=== PATIENT | female | born 1950 | race Hispanic/Latino ===

== ENCOUNTER 2017-05-21 07:46 | Observation (INO) | payer BC ==
[2017-05-21 08:06] VITALS: BMI 34.4
--- NOTE | 2017-05-21 08:36 | ED PDOC ---
Arrival/HPI - General Chief Complaint: Flu-like Symptoms Time Seen by Provider: 05/21/17 08:24 - History of Present Illness Narrative History of Present Illness (Text): 67 y/o F c PMHx HTN p/w NBNB vomiting x 4 days ago after eating mall food, resolved the next day, now p/w general weakness and lightheadedness x 2 days. Also reports malodorous urine. Denies dysuria, fever, dyspnea, LOC, chest pain. Past Medical History - Reproductive Menopause: Yes - Cardiac Hx Cardiac Disorders: Yes Hx Hypertension: Yes - Pulmonary Hx Respiratory Disorders: Yes Hx Chronic Obstructive Pulmonary Disease (COPD): Yes - Neurological Hx Neurological Disorder: Yes Hx Migraine: Yes - HEENT Hx HEENT Disorder: Yes Other/Comment: SINUSITIS - Renal Hx Renal Disorder: No - Endocrine/Metabolic Hx Endocrine Disorders: No - Hematological/Oncological Hx Blood Disorders: Yes Hx Blood Transfusions: Yes - Integumentary Hx Dermatological Disorder: Yes Hx Psoriasis: Yes - Musculoskeletal/Rheumatological Hx Musculoskeletal Disorders: Yes Hx Degenerative Joint Disease: Yes Other/Comment: SCOLIOSIS - Gastrointestinal Hx Gastrointestinal Disorders: Yes Hx Constipation: Yes - Genitourinary/Gynecological Hx Genitourinary Disorders: No - Psychiatric Hx Psychophysiologic Disorder: Yes Hx Anxiety: Yes Hx Depression: Yes Hx Substance Use: No - Surgical History Hx Section: Yes Other/Comment: R/T SCOLIOSIS - Anesthesia Hx Anesthesia: Yes - Suicidal Assessment Feels Threatened In Home Enviroment: No Family/Social History Family/Social History: No Known Family HX Smoking Status: Never Smoked Hx Alcohol Use: No Hx Substance Use: No Allergies/Home Meds Allergies/Adverse Reactions: Allergies cat dander Allergy (Verified 05/21/17 08:24) ITCHING mold Allergy (Verified 05/21/17 08:24) COUGH Sulfa (Sulfonamide Antibiotics) Allergy (Verified 02/26/16 14:46) RASH tetracycline Allergy (Verified 02/26/16 14:46) URTICARIA ASPERTAME Allergy (Uncoded 02/26/16 14:46) DIARRHEA Home Medications: Home Meds Medication Instructions Recorded Confirmed ARIPiprazole [Abilify] 5 mg PO DAILY 10/27/14 05/21/17 Clonazepam [Klonopin] 0.5 mg PO DAILY 10/27/14 05/21/17 Lamotrigine [Lamictal] 25 mg PO DAILY 10/27/14 05/21/17 Verapamil [Calan SR Tab] 180 mg PO DAILY 10/27/14 05/21/17 Acetaminophen with Codeine 1 tab PO BID PRN 02/26/16 05/21/17 [Tylenol with Codeine #3 Tablet] Amantadine [Amantadine 100 mg Cap] 100 mg PO BID 02/26/16 05/21/17 Carbidopa/Levodopa 1 tab PO TID 02/26/16 05/21/17 [Carbidopa-Levodopa 25-100 Tab] Rizatriptan Benzoate [Maxalt] 10 mg PO PRN PRN 02/26/16 05/21/17 Review of Systems - Physician Review All systems were reviewed & negative as marked: Yes - Review of Systems Constitutional: absent: Fevers Cardiovascular: absent: Chest Pain Physical Exam - Physical Exam Narrative Physical Exam (Text): Gen: NAD Head: NC/AT Eyes: PERRL ENT: Dry MM Neck: Supple CV: Regular rate Lungs: CTA b/l Abd: Soft, NT Extremities: No swelling or tenderness Skin: No rash Neuro: Alert, no focal deficit Vital Signs Temp Pulse Resp BP Pulse Ox 05/21/17 10:15 87 18 144/82 97 05/21/17 08:13 98.5 F 108 H 12 144/73 99 Medical Decision Making ED Course and Treatment: Labs, hydrate, UA and culture. 05/21/17 10:44 EKG: Normal sinus rhythm Rate of [address]/T wave changes CXR no acute disease. Dr. Mccarthy accepts patient to his service on observation as patient with increased unsteadiness/tremor and with poor stability. He called Dr. Diego who will see patient in hospital. - Lab Interpretations Lab Results: 05/21/17 09:07 05/21/17 09:07 Lab Results 05/21/17 09:40: Urine Color Yellow, Urine Appearance Clear, Urine pH 6.0, Ur Specific [place] 1.025, Urine Protein Trace H, Urine Glucose (UA) Negative, Urine Ketones Trace H, Urine Blood Negative, Urine Nitrate Negative, Urine Bilirubin Negative, Urine Urobilinogen 0.2, Ur Leukocyte Esterase Trace H, Urine RBC Negative, Urine WBC 10 - 15, Ur Epithelial Cells 3 - 4 05/21/17 09:07: Sodium 138, Potassium 3.6, Chloride 99, Carbon Dioxide 29, Anion Gap 13, BUN 17, Creatinine 0.8, Est GFR ( Amer) > 60, Est GFR (Non- Af Amer) > 60, Random Glucose 99, Calcium 9.9, Total Bilirubin 1.0, AST 29, ALT 26, Alkaline Phosphatase 93, Total Creatine Kinase 251 H, CK-MB (CK-2) 5.0 H, CK -MB (CK-2) % 2.0 L, Troponin I < 0.01, Total Protein 7.2, Albumin 4.4, Globulin 2.8, Albumin/Globulin Ratio 1.6, Lipase 186 05/21/17 09:07: WBC 5.9, RBC 4.52, Hgb 13.5, Hct 39.7, MCV 87.8, MCH 29.9, MCHC 34.0, RDW 13.9, Plt Count 184, MPV 11.2 H, Gran % 59.3, Lymph % (Auto) 29.1, [place] % (Auto) 10.1 H, Eos % (Auto) 1.0 L, Baso % (Auto) 0.5, Gran # 3.51, Lymph # 1.7, [place] # 0.6, Eos # 0.1, Baso # 0.03 - RAD Interpretation Radiology Orders: 05/21/17 08:38 CHEST PORTABLE [RAD] Stat - Medication Orders Current Medication Orders: Discontinued Medications Sodium Chloride (Sodium Chloride 0.9%) 1,000 mls @ 999 mls/hr IV .Q1H1M STA Stop: 05/21/17 09:59 Last Admin: 05/21/17 09:12 Dose: 999 mls/hr eMAR Start Stop Document 05/21/17 09:12 GERARDO (Rec: 05/21/17 09:17 GERARDO [id number]) Intravenous Solution Start Date 05/21/17 Start Time 09:12 Disposition/Present on Arrival - Present on Arrival Any Indicators Present on Arrival: No History of DVT/PE: No History of Uncontrolled Diabetes: No Urinary Catheter: No History of Decub. Ulcer: No History Surgical Site Infection Following: None - Disposition Have Diagnosis and Disposition been Completed?: Yes Diagnosis: Malaise, General weakness Disposition: HOME/ ROUTINE Disposition Time: 10:12 Patient Plan: Observation Condition: STABLE
[2017-05-21] MEDS ORDERED: Sodium Chloride 0.9% 1,000 ML IV STA (08:59)
[2017-05-21 09:16] LABS: BASO # 0.03 K/mm3 (0.0-2.0); BASO % 0.5 % (0.0-3.0); EOS # 0.1 (0.0-0.7); GRAN # 3.51 (1.4-6.5); GRAN % 59.3 % (50.0-68.0); HEMOGLOBIN 13.5 g/dL (12.0-16.0); LYMPH # 1.7 (1.2-3.4); LYMPH % 29.1 % (22.0-35.0); MEAN CELL VOLUME 87.8 fl (80.0-105.0); MEAN CORPUSCULAR HEMOGLOBIN 29.9 pg (25.0-35.0); MEAN PLATELET VOLUME 11.2 fl (7.0-11.0); MONO # 0.6 (0.1-0.6); MONO % 10.1 % (1.0-6.0); RBC 4.52 10^6/uL (3.5-6.1); RED CELL DISTRIBUTION WIDTH 13.9 % (11.5-14.5); WHITE BLOOD COUNT 5.9 10^3/ul (4.5-11.0)
[2017-05-21 09:25] LABS: ALB/GLOB RATIO 1.6 (1.1-1.8); ALBUMIN 4.4 g/dL (3.0-4.8); ALT/SGPT 26 U/L (7-56); AST/SGOT 29 U/L (14-36); BLOOD UREA NITROGEN 17 mg/dL (7-21); CALCIUM 9.9 mg/dL (8.4-10.5); GFR AFRICAN-AMERICAN > 60; GFR NON-AFRICAN AMERICAN > 60; LIPASE 186 U/L (23-300)
[2017-05-21 09:36] LABS: TROPONIN I < 0.01 ng/mL
[2017-05-21 09:56] LABS: URINE BILIRUBIN NEGATIVE (NEGATIVE); URINE BLOOD NEGATIVE (NEGATIVE); URINE GLUCOSE (UA) NEGATIVE (NEGATIVE); URINE LEUKOCYTE ESTERASE TRACE Leu/uL (NEGATIVE); URINE NITRATE NEGATIVE (NEGATIVE); URINE PROTEIN TRACE mg/dL (<30 mg/dL); URINE UROBILINOGEN 0.2 E.U./dL (<1 E.U./dL)
[2017-05-21 09:57] LABS: URINE APPEARANCE CLEAR (CLEAR); URINE COLOR YELLOW (YELLOW)
[2017-05-21 10:08] LABS: URINE RBC NEGATIVE /hpf (0-2)
[2017-05-21 10:16] VITALS: O2SAT 97
--- NOTE | 2017-05-21 10:19 | RAD ---
HISTORY: Generalize weakness COMPARISON: Comparison made with chest radiograph dated 02/26/2016 FINDINGS: LUNGS: Suspect mild atelectasis left lung base. Right lung is relatively clear so far as can be seen PLEURA: No significant pleural effusion identified, no pneumothorax apparent. CARDIOVASCULAR: Heart size difficult to assess due to severe scoliosis convex right though appears slightly enlarged OSSEOUS STRUCTURES: Re- demonstrated is significant scoliosis upper thoracic spine convex right VISUALIZED UPPER ABDOMEN: Normal. OTHER FINDINGS: None. IMPRESSION: Suspect mild left basilar atelectasis base. . Re- demonstrated is significant scoliosis convex right
[2017-05-21] MEDS ORDERED: Pneumococcal 23-Valent Vaccine IM ONE (14:33)
[2017-05-21] MEDS ORDERED: Influenza Vaccine 60 mcg/0.5 mL SYR (4YR UP) IM ONE (14:33)
--- NOTE | 2017-05-21 15:03 | CT ---
PROCEDURE: CT HEAD WITHOUT CONTRAST. HISTORY: Dizziness COMPARISON: None available. TECHNIQUE: Axial computed tomography images were obtained through the head/brain without intravenous contrast. Radiation dose: Total exam DLP = 936.75 mGy-cm. This CT exam was performed using one or more of the following dose reduction techniques: Automated exposure control, adjustment of the mA and/or kV according to patient size, and/or use of iterative reconstruction technique. FINDINGS: HEMORRHAGE: No acute parenchymal, subarachnoid or extra-axial hemorrhage. BRAIN: Mild diffuse/confluent chronic white matter ischemic changes. . There is a small approximately 4.1 mm the round/elliptical shaped calcification in the left benito radiata nonspecific; rule out post infectious/ inflammatory or post ischemic sequela. There are a few scattered chronic bilateral basal nuclei lacunar type infarcts. Questionable small chronic infarct left cerebellum. Vague low-attenuation changes seen in the left liborio which could represent some volume averaging artifact the possibility of a age-indeterminate ischemic focus not excluded. Mild to moderate generalized volume loss. VENTRICLES: No obstructive hydrocephalus. CALVARIUM: No acute calvarial fractures. PARANASAL SINUSES: Unremarkable as visualized. No significant inflammatory changes. MASTOID AIR CELLS: Unremarkable as visualized. No inflammatory changes. OTHER FINDINGS: None. IMPRESSION: No acute intracranial hemorrhage. Mild diffuse/confluent chronic white matter ischemic changes. . There are a few scattered chronic bilateral basal nuclei lacunar type infarcts. Questionable small chronic infarct left cerebellum. INC hemorrhage that not evaluated no see any hemorrhage There is a small approximately 4.1 mm the round/elliptical shaped calcification in the left benito radiata nonspecific; rule out post infectious/ inflammatory or post ischemic sequela. Vague low-attenuation changes seen in the left liborio which could represent some volume averaging artifact the possibility of a age-indeterminate ischemic focus not excluded. Mild to moderate generalized volume loss.
--- NOTE | 2017-05-21 15:50 | CARD ---
APPROVED REPORT EKG Measurement Heart [id number] <Conclusion> Normal sinus rhythm Normal ECG
[2017-05-21] MEDS ORDERED: Verapamil 180 mg ER Tab PO SCH (22:00)
--- NOTE | 2017-05-22 05:48 | HP ---
HISTORY OF PRESENT ILLNESS: This is a 67-year-old female, who states that several days ago she ate at a mall some mashed potato with mixed vegetable and other things in it and subsequently became ill with nausea and vomiting. She subsequently states that over the following day, it seems to get better. However this morning, she states that during the night she was having some chills also while taking a shower, she felt dizzy and she was referred to [facility]. PAST MEDICAL HISTORY: The patient has a past medical history of hypertension, scoliosis, anxiety, depression, and migraine headaches. SOCIAL HISTORY: She is a non-smoker, non-drinker, and non-drug user. ALLERGIES: , MOLD, PHENYLALANINE, SULFA, TETRACYCLINE, AND ASPARTAME. HOME MEDICATIONS: Consist of Abilify 5 mg daily, Tylenol No. 3 1 tab p.r.n. b.i.d., amantadine 100 mg b.i.d., carbidopa/levodopa 25/100 one tab t.i.d., Klonopin 1.5 mg daily, Lamictal 25 mg daily, Maxalt 10 mg p.o. p.r.n. and verapamil SR 100 mg daily. She also has been taking Diovan and hydrochlorothiazide as an outpatient. PHYSICAL EXAMINATION: VITAL SIGNS: Showed a temperature of 98.5, her pulse was 87, blood pressure 144/82, respiratory rate 12, and oxygen saturation was 99% on room air. NECK: Supple. LUNGS: Clear. HEART: S1 and S2 rhythm. ABDOMEN: Soft, scaphoid. Positive bowel sounds. EXTREMITIES: Show no evidence of edema. The patient had a chest x-ray, which showed mild atelectasis of left lung base, difficult to assess the heart size because of severe scoliosis. A CAT scan of the head was read as showing no acute parenchymal subarachnoid or extra axial hemorrhage. There is mild diffuse confluent chronic white matter ischemic change, small 4.1 mm round elliptical shape calcification in left benito radiata, which is nonspecific, few scattered chronic bilateral basal nuclei lacunar infarcts, questionable small chronic infarct at left cerebellum, vague low attenuation changes in left liborio, [id number] generalized volume loss, now hydrocephalus, no calvarial fracture. LABORATORY DATA: Showed a WBC 5.9, RBC 4.52, hemoglobin 13.5, hematocrit 39.7, and platelet count 184. Chemistry shows normal electrolytes, BUN is 17, and creatinine is 0.8. Liver profile is normal. Total CK is 251. Troponin is less than 0.01. Urinalysis shows trace protein, negative for RBCs and 10 to 15 WBCs. The electrocardiogram was reported as showing a sinus rhythm. IMPRESSION AND PLAN: 1. This is a 67-year-old female with history of gastrointestinal upset, possible gastroenteritis. 2. Symptoms of lightheadedness and dizziness, tingling in the hands and feet. We will get a Neurology and Gastrointestinal evaluation for this patient and urine culture as well. The patient will be requested to be placed on telemetry for monitoring and physical therapy screening. Tiffanie Mccarthy MD
[2017-05-22 08:33] VITALS: BP 146/92; RESP 20; TEMP 98.3
[2017-05-22] MEDS ORDERED: Barium Sulfate Susp 2.1% w/v, 2.0% w/w 450 mL Bottle PO ONE (11:03)
--- NOTE | 2017-05-22 12:39 | CP.PCM.CON ---
History of Present Illness - History of Present Illness History of Present Illness: General Surgery Consult Note for Dr. Gipson Reason for consultation: Right index finger swelling HPI: This is a very pleasant 67 year old female with a past medical history of scoliosis, hypertension, depression, and migraines presented to [facility] for chills and lethargy after experienced a food-borne illness several days ago. We, the surgical team, were consulted for right index finger swelling. The patient reports hurting her finger 2 weeks ago from opening a pet food can. She denies any blood expressed from the cut and denies any ascending weakness, paralysis, numbness, or tingling in the right upper extremity. She does not recall the last time she got a tetanus shot. After examining the area, it appears the patient medial periungal area is mildly swollen, likely secondary to frequent hand hygiene/nail hygiene. The patient had the finger tightly wrapped in a band- aid, "to protect it from germs". I informed her that was unnecessary and her chills and generalized weakness are not stemming from an infection in her right index finger, and rather from another source, if any. I recommended repeating the UA and applying warm compresses to the right index finger. PMD: Dr. Mccarthy PMH: hypertension, scoliosis, depression, migraines, Surgical history: X 2, 2 Back surgeries, Small Cyst Removed By Left Eye. Bunionectomy Bilaterally. Allergies: Aspartame, mold, cat dander, phenylalanine, sulfa, and tetracyclines Social: Denies smoking, alcohol, or illicit drug use Review of Systems - Review of Systems All systems: reviewed and no additional remarkable complaints except Review of Systems: as per hpi Past Patient History - Past Social History Smoking Status: Former Smoker - CARDIAC Hx Cardiac Disorders: Yes Hx Hypertension: Yes - PULMONARY Hx Respiratory Disorders: Yes Hx Chronic Obstructive Pulmonary Disease (COPD): Yes - NEUROLOGICAL Hx Neurological Disorder: Yes (TREMORS) Hx Dizziness: Yes Hx Migraine: Yes - HEENT Hx HEENT Problems: Yes Other/Comment: SINUSITIS - RENAL Hx Chronic Kidney Disease: No - ENDOCRINE/METABOLIC Hx Endocrine Disorders: No - HEMATOLOGICAL/ONCOLOGICAL Hx Blood Disorders: Yes - INTEGUMENTARY Hx Dermatological Problems: Yes Hx Psoriasis: Yes - MUSCULOSKELETAL/RHEUMATOLOGICAL Hx Musculoskeletal Disorders: Yes (SLIPPED DISC,SCOLIOSIS) Hx Degenerative Joint Disease: Yes Hx Falls: Yes Hx Unsteady Gait: Yes Other/Comment: SCOLIOSIS - GASTROINTESTINAL Hx Gastrointestinal Disorders: Yes - GENITOURINARY/GYNECOLOGICAL Hx Genitourinary Disorders: No (C/S X2) - PSYCHIATRIC Hx Psychophysiologic Disorder: Yes Hx Anxiety: Yes Hx Depression: Yes Hx Substance Use: No - SURGICAL HISTORY Hx Surgeries: Yes (C/S X 2,2 BACK SX, SMALL CYST REMOVED BY HER LEFT EYE.BUNIONECTOMY LINDEN FOOT) Other/Comment: R/T SCOLIOSIS - ANESTHESIA Hx Anesthesia: Yes Meds Home Medications: Home Medication List Medication Instructions Recorded Confirmed Type Cephalexin [Keflex] 500 mg PO Q8H 5 Days #15 cap 05/22/17 Rx Lactobac/Bifidobac/Glob Pr Con 1 each PO DAILY 5 Days #5 capsule 05/22/17 Rx [Ultra Zeinab Plus Capsule] Allergies/Adverse Reactions: Allergies Allergy/AdvReac Type Severity Reaction Status Date / Time cat dander Allergy ITCHING Verified 05/21/17 11:50 mold Allergy COUGH Verified 05/21/17 11:50 phenylalanine Allergy DIZZINESS Verified 05/21/17 14:41 Sulfa (Sulfonamide Allergy RASH Verified 05/21/17 11:50 Antibiotics) tetracycline Allergy URTICARIA Verified 05/21/17 11:50 ASPERTAME Allergy DIARRHEA Uncoded 05/21/17 11:50 - Medications Medications: Current Medications Carbidopa/Levodopa (Sinemet) 1 tab PO BID [facility] Last Admin: 05/22/17 09:52 Dose: 1 tab Clonazepam (Klonopin) 0.5 mg PO HS PRN; Protocol PRN Reason: Anxiety Hydrochlorothiazide (Microzide) 12.5 mg PO DAILY [facility] Last Admin: 05/22/17 10:26 Dose: 12.5 mg Lamotrigine (Lamictal) 25 mg PO HS [facility] PRN Reason: Protocol Last Admin: 05/21/17 22:15 Dose: 25 mg Losartan Potassium (Cozaar) 100 mg PO DAILY [facility] Last Admin: 05/22/17 10:26 Dose: 100 mg Verapamil HCl (Calan Sr Tab) 180 mg PO [facility] Last Admin: 05/21/17 22:16 Dose: 180 mg Physical Exam - Constitutional Appears: Well, Non-toxic - Head Exam Head Exam: ATRAUMATIC, NORMOCEPHALIC - Eye Exam Eye Exam: EOMI, Normal appearance - ENT Exam ENT Exam: Mucous Membranes Moist, Normal Oropharynx - Neck Exam Neck exam: Positive for: Normal Inspection - Respiratory Exam Respiratory Exam: NORMAL BREATHING PATTERN. absent: Accessory Muscle Use - Cardiovascular Exam Cardiovascular Exam: RRR, +S1, +S2 - GI/Abdominal Exam GI & Abdominal Exam: Normal Bowel Sounds, Soft. absent: Distended, Guarding - Extremities Exam Extremities exam: Positive for: pedal edema (trace) Additional comments: radial pulses symmetric and equal bilaterally. - Neurological Exam Neurological exam: Alert Additional comments: sensation to soft and sharp touch intact in bilateral upper extremities; strength and finger movements within intrinsic hand muscles within normal limits - Psychiatric Exam Psychiatric exam: Normal Affect, Normal Mood - Skin Skin Exam: Dry, Intact, Normal Color, Warm Additional comments: medial lateral nail fold of right index finger appears mildly inflamed/swollen Results - Vital Signs Recent Vital Signs: Last Vital Signs Temp 98.3 F 05/22/17 08:33 Pulse 86 05/22/17 10:00 Resp 20 05/22/17 08:33 BP 146/92 H 05/22/17 08:33 Pulse Ox 97 05/22/17 08:33 - Labs Result Diagrams: 05/21/17 09:07 05/21/17 09:07 Assessment & Plan - Assessment and Plan (Free Text) Assessment: Acute paronychia of the right index finger Plan: - Warm soaks to the right index finger, at least 4 times per day, for 15 minutes intervals. - Cephalexin 500 mg PO q8h for five days total - Probiotic once a day to be taken for five days - Case discussed with attending, Dr. Gipson Thank you for allowing to participate in the care of your patient Karina Lehman DO, PGY-1 - Date & Time Date: 05/22/17 Time: 13:28
--- NOTE | 2017-05-22 14:42 | CT ---
PROCEDURE: CT Abdomen and Pelvis without Oral or IV contrast. HISTORY: Stomach pain COMPARISON: None available. TECHNIQUE: Contiguous axial images of the abdomen and pelvis. No oral or IV contrast administered. Coronal and Sagittal reformats generated and reviewed. Radiation dose: Total exam DLP = 799.41 mGy-cm. This CT exam was performed using one or more of the following dose reduction techniques: Automated exposure control, adjustment of the mA and/or kV according to patient size, and/or use of iterative reconstruction technique. FINDINGS: There is limited evaluation of the solid organs without the administration of IV contrast. Examination also limited by severe scoliosis. LOWER THORAX: No visible consolidation, pleural effusion, or pneumothorax. LIVER: Unremarkable unenhanced appearance. GALLBLADDER AND BILE DUCTS: Unremarkable unenhanced appearance. PANCREAS: Unremarkable unenhanced appearance. SPLEEN: Unremarkable unenhanced appearance. ADRENALS: Unremarkable unenhanced appearance. KIDNEYS AND URETERS: No hydronephrosis or obstructing renal calculus. Probable extrarenal pelvis on the left. BLADDER: The urinary bladder appears unremarkable. REPRODUCTIVE: Uterus is present. APPENDIX: The appendix is not identified. No secondary signs of acute appendicitis. BOWEL: The stomach is nondistended. Lack of oral contrast limits evaluation for bowel pathology. The bowel loops appear within normal limits of caliber without evidence of intestinal obstruction. Moderate constipation. PERITONEUM: No significant free fluid. No definite free air. LYMPH NODES: No bulky lymphadenopathy identified. VASCULATURE: No aortic aneurysm. BONES: Severe scoliosis, osseous demineralization, and degenerative changes. OTHER FINDINGS: None. IMPRESSION: Probable left extra renal pelvis. Suggest renal ultrasound if indicated. Moderate constipation. Severe scoliosis and degenerative changes.
[2017-05-22 15:51] VITALS: PULSE 82
--- NOTE | 2017-05-22 16:45 | CP.PCM.CON ---
<Ethel Sanchez - Last Filed: 05/22/17 16:54> History of Present Illness - History of Present Illness History of Present Illness: Seen and examined at the bedside earlier today, chart reviewed. Request for GI consult is for gastroenteritis. HPI: This is a 67-year-old female with a past medical history of hypertension, migraine headaches, scoliosis, PKU allergy came to the emergency room with complaints of nausea and vomiting as well as feelings of dizziness with subjective fever and chills. The patient stated that on Friday she was at the mall and ate at the food court sweet potatoes with minutes vegetables and after 1 hour started having abdominal cramps and nausea, the patient went home reported vomiting 4 that night as well as had 3 formed BMs. The next morning she complained of having chills and hot flashes as well as had a semi-loose bowel movement and noted that her urine had a foul odor. No reports of hematemesis or blood per rectum. The next day she she complain of having weakness in her legs and on Friday night she was still having fever and chills that required 3 blankets. Friday morning she called her PCP told her that if the symptoms did not improve to go to the emergency room. This morning she gets intermittent in chills, she did have a bowel movement this morning that was formed no nausea vomiting or blood per rectum. Although last night she did complain of abdominal cramps mostly in the left lower quadrant thought to be a gas pocket she did pass flatus with relief. Abdominal pain is intermittent. She also saw a neurologist last night. This patient did have endoscopy and colonoscopy about [address] Martins remembers having hiatal hernia and colon polyps. This patient had a CT scan of the head which showed no acute parenchymal subarachnoid or extra-axial hemorrhage. 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 Surgical history: Ask surgery 2, hemorrhoid surgery, 2, right breast cyst removal Allergies: CAT dander, mold, PKU phenylalanine allergy, sulfa, tetracycline, Aspartame Family history: Mother breast cancer and diabetes, father heart disease Social history: Denies tobacco use, alcohol or recreational drugs Home medications: Reviewed as per MAR ROS: Systems review took positive finding see HPI Past Patient History - Past Social History Smoking Status: Former Smoker - CARDIAC Hx Cardiac Disorders: Yes Hx Hypertension: Yes - PULMONARY Hx Respiratory Disorders: Yes Hx Chronic Obstructive Pulmonary Disease (COPD): Yes - NEUROLOGICAL Hx Neurological Disorder: Yes (TREMORS) Hx Dizziness: Yes Hx Migraine: Yes - HEENT Hx HEENT Problems: Yes Other/Comment: SINUSITIS - RENAL Hx Chronic Kidney Disease: No - ENDOCRINE/METABOLIC Hx Endocrine Disorders: No - HEMATOLOGICAL/ONCOLOGICAL Hx Blood Disorders: Yes - INTEGUMENTARY Hx Dermatological Problems: Yes Hx Psoriasis: Yes - MUSCULOSKELETAL/RHEUMATOLOGICAL Hx Musculoskeletal Disorders: Yes (SLIPPED DISC,SCOLIOSIS) Hx Degenerative Joint Disease: Yes Hx Falls: Yes Hx Unsteady Gait: Yes Other/Comment: SCOLIOSIS - GASTROINTESTINAL Hx Gastrointestinal Disorders: Yes - GENITOURINARY/GYNECOLOGICAL Hx Genitourinary Disorders: No (C/S X2) - PSYCHIATRIC Hx Psychophysiologic Disorder: Yes Hx Anxiety: Yes Hx Depression: Yes Hx Substance Use: No - SURGICAL HISTORY Hx Surgeries: Yes (C/S X 2,2 BACK SX, SMALL CYST REMOVED BY HER LEFT EYE.BUNIONECTOMY LINDEN FOOT) Other/Comment: R/T SCOLIOSIS - ANESTHESIA Hx Anesthesia: Yes Meds Home Medications: Home Medication List Medication Instructions Recorded Confirmed Type Carbidopa/Levodopa 25/100 mg 1 tab PO BID tab 05/22/17 Rx [Sinemet] Cephalexin [Keflex] 500 mg PO Q8H 5 Days #15 cap 05/22/17 Rx Lactobac/Bifidobac/Glob Pr Con 1 each PO DAILY 5 Days #5 capsule 05/22/17 Rx [Ultra Zeinab Plus Capsule] Losartan [Cozaar] 100 mg PO DAILY tab 05/22/17 Rx Verapamil [Calan SR Tab] 180 mg PO HS tab 05/22/17 Rx clonazePAM [Klonopin] 0.5 mg PO HS PRN tab 05/22/17 Rx hydroCHLOROthiazide [Microzide] 12.5 mg PO DAILY cap 05/22/17 Rx lamoTRIgine [Lamictal] 25 mg PO HS tab 05/22/17 Rx Allergies/Adverse Reactions: Allergies Allergy/AdvReac Type Severity Reaction Status Date / Time cat dander Allergy ITCHING Verified 05/21/17 11:50 mold Allergy COUGH Verified 05/21/17 11:50 phenylalanine Allergy DIZZINESS Verified 05/21/17 14:41 Sulfa (Sulfonamide Allergy RASH Verified 05/21/17 11:50 Antibiotics) tetracycline Allergy URTICARIA Verified 05/21/17 11:50 ASPERTAME Allergy DIARRHEA Uncoded 05/21/17 11:50 - Medications Medications: Current Medications Carbidopa/Levodopa (Sinemet) 1 tab PO BID [facility] Last Admin: 05/22/17 09:52 Dose: 1 tab Clonazepam (Klonopin) 0.5 mg PO HS PRN; Protocol PRN Reason: Anxiety Hydrochlorothiazide (Microzide) 12.5 mg PO DAILY [facility] Last Admin: 05/22/17 10:26 Dose: 12.5 mg Lamotrigine (Lamictal) 25 mg PO HS [facility] PRN Reason: Protocol Last Admin: 05/21/17 22:15 Dose: 25 mg Losartan Potassium (Cozaar) 100 mg PO DAILY [facility] Last Admin: 05/22/17 10:26 Dose: 100 mg Verapamil HCl (Calan Sr Tab) 180 mg PO HS [facility] Last Admin: 05/21/17 22:16 Dose: 180 mg Physical Exam - Constitutional Appears: No Acute Distress - Head Exam Head Exam: NORMOCEPHALIC - Eye Exam Eye Exam: Normal appearance. absent: Scleral icterus - ENT Exam ENT Exam: Mucous Membranes Moist - Neck Exam Neck exam: Positive for: Normal Inspection - Respiratory Exam Respiratory Exam: Decreased Breath Sounds, Clear to Auscultation Bilateral, NORMAL BREATHING PATTERN. absent: Respiratory Distress - Cardiovascular Exam Cardiovascular Exam: +S1, +S2 - GI/Abdominal Exam GI & Abdominal Exam: Normal Bowel Sounds, Soft, Tenderness. absent: Guarding, Organomegaly, Rebound Additional comments: left lower quadrant - Extremities Exam Extremities exam: Positive for: pedal edema (trace), pedal pulses present. Negative for: calf tenderness Additional comments: right index finger with erythema and slight edema noted - Neurological Exam Neurological exam: Alert, Oriented x3 - Skin Skin Exam: Dry, Warm Results - Vital Signs Recent Vital Signs: Last Vital Signs Temp 98.3 F 05/22/17 08:33 Pulse 82 05/22/17 14:00 Resp 20 05/22/17 08:33 BP 146/92 H 05/22/17 08:33 Pulse Ox 97 05/22/17 08:33 - Labs Result Diagrams: 05/21/17 09:07 05/21/17 09:07 Assessment & Plan - Assessment and Plan (Free Text) Assessment: Assessment: Abdominal pain, differentials to consider could be gastroenteritis, rule out any diverticular disease Lightheadedness/dizziness Right fourth finger erythema PKU allergy Hypertension Scoliosis History of anxiety Plan: Continue diet as tolerated Request for CT scan of abdomen and pelvis with oral contrast Continue PPI As per neurology ? ID evaluation regarding erythema on the right forefinger, discussed w/ Dr. Mccarthy Plan discussed with patient and Dr. Mccarthy who agreed. Thank you for this consult and follow-up as a participate in your patient's care. Further recommendations based upon clinical course. Seen and discussed with Dr. Granda. <Isela Granda V - Last Filed: 05/23/17 01:04> Results - Vital Signs Recent Vital Signs: Last Vital Signs Temp 98.3 F 05/22/17 08:33 Pulse 82 05/22/17 14:00 Resp 20 05/22/17 08:33 BP 146/92 H 05/22/17 08:33 Pulse Ox 97 05/22/17 08:33 - Labs Result Diagrams: 05/21/17 09:07 05/21/17 09:07 Attending/Attestation - Attestation I have personally seen and examined this patient.: Yes I have fully participated in the care of the patient.: Yes I have reviewed all pertinent clinical information: Yes Notes (Text): This is an addendum to GI consult report dictated by Ethel Sanchez APN.The patient was seen and examined earlier. Medical records, lab studies, imagings were reviewed. Last 24 hours events reviewed. Agreed with the above treatment plan as outlined in Ethel Sanchez APN's notes the with the addition of the following On examination abdomen was soft no masses no tenderness Discussed with Dr. Mccarthy CT scan ordered reviewed Previous EGD [place] by Dr. Harrison Would benefit from repeat colonoscopy evaluation based on the course as an outpatient 05/23/17 01:03
[2017-05-22] MEDS ORDERED: Betamethasone Dip 0.05% Oint 45gm TOP SCH (18:00)
== END 2017-05-22 17:56 | disposition home or self-care (01) ==
LOC: ED 07:46 → INTOOBSV 10:25 → ERH 10:25 → 3RNO 12:10
PROVIDERS: ADMIT Internal Medicine; ATTEND Internal Medicine
DX: G20 Parkinson's disease (principal); I10 Essential (primary) hypertension; J44.9 Chronic obstructive pulmonary disease, unspecified; K52.9 Noninfective gastroenteritis and colitis, unspecified; L03.011 Cellulitis of right finger; M41.9 Scoliosis, unspecified; Z79.899 Other long term (current) drug therapy; Z80.3 Family history of malignant neoplasm of breast; Z82.49 Family history of ischemic heart disease and other diseases of the circulatory system; Z83.3 Family history of diabetes mellitus; Z86.010 Personal history of colon polyps; Z87.891 Personal history of nicotine dependence; J32.9 Chronic sinusitis, unspecified; L40.9 Psoriasis, unspecified; M19.90 Unspecified osteoarthritis, unspecified site; Z88.1 Allergy status to other antibiotic agents; Z88.2 Allergy status to sulfonamides; Z91.018 Allergy to other foods; Z91.048 Other nonmedicinal substance allergy status; G43.909 Migraine, unspecified, not intractable, without status migrainosus
CPT/HCPCS: 70450; 71045; 74176; 80053; 81001; 82550; 82553; 83690; 84484; 85025; 87086; 93005; 96360; 99285; G0378; J7040

== ENCOUNTER → 2018-04-06 | Day surgery (SDC) | payer BC ==
[~2018-04-06] MED LIST: Lidocaine 1% Inj (20ml) ONE; Propofol 10 mg/ml Inj (20 ML) ONE; Sodium Chloride 0.9% 1,000 ML IV SCH
[2018-04-06 07:39] VITALS: TEMP 98
[2018-04-06 08:42] VITALS: RESP 14
[2018-04-06 08:53] VITALS: O2SAT 100
[2018-04-06 09:51] VITALS: BP 140/74; PULSE 64
== END | disposition home or self-care (01) ==
LOC: ENDO 06:35
PROVIDERS: ATTEND Internal Medicine Gastroenterology
DX: Z12.11 Encounter for screening for malignant neoplasm of colon (principal); Z86.010 Personal history of colon polyps; K64.0 First degree hemorrhoids; K63.89 Other specified diseases of intestine
CPT/HCPCS: 45378; J2704; J7030; J7040

== ENCOUNTER 2018-09-03 16:20 | Inpatient (IN) | payer BC, MEDICARE ==
--- NOTE | 2018-09-03 16:59 | ED PDOC ---
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 Patient's is present who helps provide history. Patient states that she called her neurologist yesterday and expressed her anxiety and desire to talk about medications. She reports that she told her neurologist's nurse that she "wanted to run into the streets," and the nurse told her to be evaluated in the ED. At the time of exam. Patient adamantly denies any desire for self-harm or suicide. She denies any previous attempts. She and her do not believe she needs to be in the hospital. She states she needs an outpatient therapist. She was seeing a psychiatrist, but she did not like how he conducted visits. She denies ever being admitted to an inpatient psych unit. Throughout the exam, she is talking fast and hard to interrupt. She is able to be redirected briefly but then goes on tangents related to her medical history. Patient states that she has many allergies, medication side effects, and somatic symptoms that are chronic. She describes her "ups and downs" of her mood. She reports that presently she feels "up" which includes being extremely anxious and frequently irritable. confirms that her current state/behavior is not new and that she has been "cycling" for years. Neither he nor the patient does not feel that the patient is a danger to herself or others. Patient is offered the option to be admitted voluntarily for stabilization of psych condition, but she declines. <Kellie Puckett - Last Filed: 09/03/18 20:00> - General Chief Complaint: Psychiatric Evaluation Time Seen by Provider: 09/03/18 16:23 Past Medical History - Provider Review Nursing Documentation Reviewed: Yes - Tetanus Immunization Tetanus Immunization: Unknown - Cardiac Hx Pacemaker: No - Pulmonary Hx Respiratory Disorders: Yes Hx Chronic Obstructive Pulmonary Disease (COPD): Yes - Neurological Hx Paralysis: No - HEENT Hx HEENT Disorder: Yes Other/Comment: SINUSITIS - Renal Hx Renal Disorder: No - Endocrine/Metabolic Hx Endocrine Disorders: No - Hematological/Oncological Hx Blood Transfusions: Yes Hx Blood Transfusion Reaction: No - Integumentary Hx Dermatological Disorder: Yes Hx Psoriasis: Yes - Musculoskeletal/Rheumatological Hx Musculoskeletal Disorders: Yes (SLIPPED DISC,SCOLIOSIS) - Gastrointestinal Hx Gastrointestinal Disorders: Yes - Genitourinary/Gynecological Hx Genitourinary Disorders: No (C/S X2) - Psychiatric Hx Substance Use: No - Surgical History Other/Comment: R/T SCOLIOSIS - Anesthesia Hx Anesthesia Reactions: No Hx Malignant Hyperthermia: No - Suicidal Assessment Feels Threatened In Home Enviroment: No <Kellie Puckett - Last Filed: 09/03/18 20:00> Family/Social History Family/Social History: Unknown Family HX Smoking Status: Former Smoker Hx Alcohol Use: No Hx Substance Use: No <Kellie Puckett - Last Filed: 09/03/18 20:00> Allergies/Home Meds <Elijah Garcia - Last Filed: 09/03/18 19:31> <Kellie Puckett - Last Filed: 09/03/18 20:00> Allergies/Adverse Reactions: Allergies cat dander Allergy (Verified 05/21/17 11:50) ITCHING ciprofloxacin [From Cipro] Allergy (Verified 09/03/18 18:04) RASH mold Allergy (Verified 05/21/17 11:50) COUGH phenylalanine Allergy (Verified 05/21/17 14:41) DIZZINESS SEIZURES Sulfa (Sulfonamide Antibiotics) Allergy (Verified 05/21/17 11:50) RASH tetracycline Allergy (Verified 05/21/17 11:50) URTICARIA artificial sweeteners Allergy (Uncoded 09/03/18 18:04) RASH ASPERTAME Allergy (Uncoded 05/21/17 11:50) DIARRHEA pku Allergy (Uncoded 09/03/18 18:04) RASH steroids Allergy (Uncoded 09/03/18 18:04) RASH Home Medications: Home Meds Medication Instructions Recorded Confirmed Rizatriptan Benzoate [Maxalt] 10 mg PO PRN PRN 02/26/16 09/03/18 Losartan [Cozaar] 50 mg PO DAILY 04/02/18 09/03/18 Calcium Carbonate [Caltrate] 1 tab PO DAILY 09/03/18 09/03/18 Review of Systems - Review of Systems Constitutional: absent: Fevers Respiratory: absent: SOB, Cough Cardiovascular: absent: Chest Pain Gastrointestinal: absent: Abdominal Pain Genitourinary Female: absent: Dysuria Skin: absent: Rash, Pruritis Neurological: Headache Hemo/Lymphatic: absent: Adenopathy Psychiatric: Anxiety. absent: Suicidal Ideation <Kellie Puckett - Last Filed: 09/03/18 20:00> Physical Exam Vital Signs Temp Pulse Resp BP Pulse Ox 09/03/18 19:00 112 H 18 178/97 H 99 09/03/18 16:53 98.7 F 110 H 19 189/97 H 98 <JeanettemartinezElijah - Last Filed: 09/03/18 19:31> Vital Signs Reviewed: Yes Vital Signs Temp Pulse Resp BP Pulse Ox 09/03/18 16:53 98.7 F 110 H 19 189/97 H 98 Temperature: Afebrile Blood Pressure: Hypertensive Pulse: Tachycardic Respiratory Rate: Normal Appearance: Positive for: Non-Toxic Pain Distress: None Mental Status: Positive for: Alert and Oriented X 3, other (Anxious) - Systems Exam Head: Present: Atraumatic, Normocephalic Pupils: Present: PERRL Extroacular Muscles: Present: EOMI Conjunctiva: Present: Normal Mouth: Present: Moist Mucous Membranes Respiratory/Chest: Present: Clear to Auscultation, Good Air Exchange Cardiovascular: Present: Normal S1, S2, Tachycardic Abdomen: No: Tenderness, Distention Lower Extremity: No: Edema Neurological: Present: GCS=15, CN II-XII Intact Psychiatric: Present: Alert, Oriented x 3, Anxious, Other (flight of ideas, tangential ). No: Suicidal Ideation, Homicidal Ideation <Kellie Puckett - Last Filed: 09/03/18 20:00> Medical Decision Making ED Course and Treatment: 09/03/18 19:31 Patient Seen with Resident: In agreement with resident note which contains more details about the patient. Patient seen and evaluated with resident. Came up with plan and treatment together. - Lab Interpretations Lab Results: Total Bilirubin 0.5 mg/dL (0.2-1.3) 09/03/18 17:10 AST 28 U/L (14-36) 09/03/18 17:10 ALT 19 U/L (7-56) 09/03/18 17:10 Alkaline Phosphatase 112 U/L (38-126) 09/03/18 17:10 Total Protein 7.2 g/dL (5.8-8.3) 09/03/18 17:10 Albumin 4.4 g/dL (3.0-4.8) 09/03/18 17:10 Globulin 2.7 gm/dL 09/03/18 17:10 Albumin/Globulin Ratio 1.6 (1.1-1.8) 09/03/18 17:10 Urine Color Straw (YELLOW) 09/03/18 17:10 Urine Appearance Clear (CLEAR) 09/03/18 17:10 Urine pH 6.0 (4.7-8.0) 09/03/18 17:10 Ur Specific Desdemona 1.010 (1.005-1.035) 09/03/18 17:10 Urine Protein Negative mg/dL (<30 mg/dL) 09/03/18 17:10 Urine Glucose (UA) Negative mg/dL (NEGATIVE) 09/03/18 17:10 Urine Ketones Negative mg/dL (NEGATIVE) 09/03/18 17:10 Urine Blood Negative (NEGATIVE) 09/03/18 17:10 Urine Nitrate Negative (NEGATIVE) 09/03/18 17:10 Urine Bilirubin Negative (NEGATIVE) 09/03/18 17:10 Urine Urobilinogen 0.2 E.U./dL (<1 E.U./dL) 09/03/18 17:10 Ur Leukocyte Esterase Trace Rolf/uL (NEGATIVE) H 09/03/18 17:10 Urine RBC TEST NOT PERFORMED 09/03/18 17:10 Urine WBC 2 - 5 /hpf (0-6) 09/03/18 17:10 Ur Epithelial Cells 6 - 8 /hpf (0-5) H 09/03/18 17:10 <Elijah Garcia - Last Filed: 09/03/18 19:31> ED Course and Treatment: 09/03/18 18:51 Pending PES eval 09/03/18 19:59 Patient agrees to be admitted to psych voluntarily Re-evaluation Time: 19:35 Reassessment Condition: Re-examined, Unchanged - Lab Interpretations I have reviewed the lab results: Yes Interpretation: No clinic. lab abnormalty - EKG Interpretation EKG Interpretation (Text): 09/03/18 19:35 EKG- sinus tachycardia Interpreted by ED Physician: Yes Type: 12 lead EKG <NicokayleeKellie - Last Filed: 09/03/18 20:00> - PA / [employer]IT[employer]PERATIONS SPECIALIST / Resident Statement / has reviewed & agrees with the documentation as recorded. / has examined the patient and agrees with the treatment plan. <Elijah Garcia - Last Filed: 09/03/18 19:31> Disposition/Present on Arrival <Elijah Garcia - Last Filed: 09/03/18 19:31> - Present on Arrival Any Indicators Present on Arrival: No History of DVT/PE: No History of Uncontrolled Diabetes: No Urinary Catheter: No History Surgical Site Infection Following: None - Disposition Have Diagnosis and Disposition been Completed?: Yes Disposition Time: 19:59 Patient Plan: Admission <Kellie Puckett - Last Filed: 09/03/18 20:00> - Disposition Diagnosis: Bipolar 1 disorder, Anxiety Disposition: HOSPITALIZED Patient Problems: Current Active Problems Problem Status Onset Anxiety Acute Perlita Acute Condition: FAIR Forms: [employer] (Croatian)
[2018-09-03 17:56] LABS: BASO # 0.04 K/mm3 (0.0-2.0); BASO % 0.5 % (0.0-3.0); EOS # 0.2 (0.0-0.7); HEMOGLOBIN 13.5 g/dL (12.0-16.0); MEAN CELL VOLUME 89.7 fl (80.0-105.0); MEAN CORPUSCULAR HEMOGLOBIN 29.5 pg (25.0-35.0); MEAN CORPUSCULAR HGB CONC 32.8 g/dl (31.0-37.0); MEAN PLATELET VOLUME 12.4 fl (7.0-11.0); MONO # 0.7 (0.1-0.6); RBC 4.58 10^6/uL (3.5-6.1); RED CELL DISTRIBUTION WIDTH 12.7 % (11.5-14.5); URINE BILIRUBIN NEGATIVE (NEGATIVE); URINE BLOOD NEGATIVE (NEGATIVE); URINE GLUCOSE (UA) NEGATIVE (NEGATIVE); URINE LEUKOCYTE ESTERASE TRACE Leu/uL (NEGATIVE); URINE PROTEIN NEGATIVE mg/dL (<30 mg/dL); URINE UROBILINOGEN 0.2 E.U./dL (<1 E.U./dL); WHITE BLOOD COUNT 8.2 10^3/uL (4.5-11.0)
[2018-09-03 17:57] LABS: URINE APPEARANCE CLEAR (CLEAR); URINE COLOR STRAW (YELLOW)
[2018-09-03 18:01] VITALS: BMI 35.3
[2018-09-03 18:07] LABS: ACETAMINOPHEN < 10.0 ug/ml (10.0-20.0); SALICYLATE < 1 mg/dL (2.0-20.0)
[2018-09-03 18:10] LABS: ALB/GLOB RATIO 1.6 (1.1-1.8); ALBUMIN 4.4 g/dL (3.0-4.8); ALT/SGPT 19 U/L (7-56); AST/SGOT 28 U/L (14-36); BLOOD UREA NITROGEN 18 mg/dL (7-21); GFR NON-AFRICAN AMERICAN > 60
[2018-09-03 18:46] LABS: BARBITURATES, UR NEGATIVE (NEGATIVE); BENZODIAZEPINES, UR NEGATIVE (NEGATIVE); OPIATES, UR NEGATIVE (NEGATIVE); PHENCYCLIDINE, UR NEGATIVE (NEGATIVE)
[2018-09-03 22:26] VITALS: O2SAT 97
[2018-09-03] MEDS: Verapamil 180 mg ER Tab PO SCH (22:41)
--- NOTE | 2018-09-03 23:59 | CP.PCM.PCO ---
<Nenita Yanes - Last Filed: 09/03/18 23:55> Addendum Addendum: 09/03/18 23:55 OVERNIGHT RESIDENT NOTE NENITA YANES PGY1 Nursing staff from psychiatric unit had initially paged me regarding patient's elevated blood pressure with request to resume home blood pressure medications. I went to evaluate the patient. She was appeared comfortable in NAD. She had just returned from using the bathroom. She reporte mild bitemoral headache and dizziness, without vision changes, weakness or any focal neurological deficits. I resumed home medications and added a one-time dose of clonidine 0.2mg. I will re-evaluate patient later on in the night. <Byron Mendiola - Last Filed: 09/04/18 23:00> Attending/Attestation - Attestation I have personally seen and examined this patient.: No I have fully participated in the care of the patient.: Yes I have reviewed all pertinent clinical information: Yes
[2018-09-04 00:35] VITALS: RESP 16
--- NOTE | 2018-09-04 02:58 | PCM.BM ---
<Ceasar Abdullahi - Last Filed: 09/04/18 02:55> Treatment Plan Problems - Problems identified on initial assessmt Feelings of Worthlessness Date Initiated: 09/04/18 Time Initiated: 23:00 Assessment reference: NA Status: Active Priority: 1 Hopelessness/Helplessness Date Initiated: 09/04/18 Time Initiated: 23:00 Assessment reference: NA Status: Active Priority: 2 Anxiety Date Initiated: 09/04/18 Time Initiated: 23:00 Assessment reference: NA Status: Active Priority: 3 Ineffective Coping Date Initiated: 09/04/18 Time Initiated: 23:00 Assessment reference: NA Status: Active Priority: 4 Treatment assets and liabiliti Patient Assests: cooperative, ADL independent, good support system, negotiates basic needs, cognitively intact, good interpersonal skills Patient Liabilities: medical problems - Milieu Protocol Maintain good personal hygiene: daily Encourage regular showers, daily Remind patient to perform daily oral care, every shift Assist patient to perform ADL's Maintain personal safety: every shift Educate patient to report safety concerns to staff, every shift Monitor environment for contraband/sharps Medication safety: Monitor for expected outcome, potential side effects: every shift, Assess barriers to learning: every shift, Assess readiness for medication education: every shift Family Contact Family involvement: Family/SO is involved Family contact: Patient agrees to contact - Goals for Treatment Patient goals for treatment: Find reason for depression Discharge/Continuing Care - Education Needs Education Needs: Patient Medication, Patient Diagnosis/Disease Process, Patient Coping Skills, Patient Anger Management skills, Patient Placement options, Patient Community resources, Patient Activities of Daily Living, Patient Pain, Patient Nutrition, Patient Uses of Medical Equipment, Patient Health Practices/Safety, Patient Personal Hygiene/Grooming, Patient Aftercare Safety Plan - Discharge Discharge Criteria: Tolerates medication w/o severe side effects <Elva Forbes - Last Filed: 09/04/18 14:41> - Diagnosis (1) Bipolar affective, manic, unspec Status: Acute Interventions: 09/04/18 14:41 Psychoeducation Psychopharmacology/adjustment of medications as needed/ monitoring possible side effects Monitor blood level of mood stabilizers Evaluate pt on daily basis Compliance with medications and follow up appointments Suicide and homicide risk assessment and prevention, coping strategies, safety plan Relapse prevention Reduction of symptoms Improve functional status Family involvement As outpatient: cognitive behavioral therapy <Amanda Arriaga Y - Last Filed: 09/04/18 16:37> Family Contact Family involvement: Family/SO is involved Family contact: Patient agrees to contact Family contact name: Hector Durbin() Family contacted how many times per week?: 2
[2018-09-04] MEDS ORDERED: Alum-Mag Hydrox-Simethicone Susp (30 mL) PO PRN (04:08)
[2018-09-04] MEDS ORDERED: Magnesium Hydroxide Susp 30 ml UD PO PRN (04:08)
[2018-09-04 07:10] VITALS: TEMP 98.2
--- NOTE | 2018-09-04 09:27 | CARD ---
APPROVED REPORT Date of service: 09/03/2018 EKG Measurement Heart [id number] <Conclusion> Sinus tachycardia Possible Left atrial enlargement Borderline ECG
--- NOTE | 2018-09-04 11:04 | RAD ---
Date of service: 09/03/2018 PROCEDURE: CHEST RADIOGRAPH, 1 VIEW HISTORY: psych admit COMPARISON: 05/21/2017 FINDINGS: LUNGS: Clear. PLEURA: No pneumothorax or pleural fluid seen. CARDIOVASCULAR: No aortic atherosclerotic calcification present. Mild cardiomegaly OSSEOUS STRUCTURES: Severe scoliotic curvature convex to the right VISUALIZED UPPER ABDOMEN: Normal. OTHER FINDINGS: None. IMPRESSION: No active disease.
--- NOTE | 2018-09-04 14:41 | PCM.PSYCH ---
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 Diego. In the emergency room patient presented in manic stage, required further evaluation and stabilization and medication management. Patient was seen and examined today at the treatment team meeting, patient presented with good personal hygiene, good ADLs, patient obviously in hypomanic stage, talkative, productive/pressured speech, difficulty to stay focus and concentrate, circumstantial and tangential thought process. Patient seems to be fair historian, patient reported since Lamictal ,which was prescribed for her for mood stabilization/depression by neurologist, was increased 3 weeks ago "I was getting progressively worse", pt acknowledged that she was feeling "edgy/irritable, emotional", patient reported "small things get into my nerves very easily", patient reported that she has frequent argument with her , patient also reported that her mind is racing, "I also started to buy a lottery tickets, it is not me, I am not a gambler" had difficulty to fall asleep and to stay asleep. Patient reports that few days ago heard some noise and she is not sure was of hallucinations or not. Usually manic episodes are about 1 week then patient would have 2 weeks off "even mood", after what patient would have depressive episode, last time patient was feeling depressed was 4 weeks ago. Patient reported being diagnosed with cyclothymia by Dr. Sullivan at the age of 51. Patient tried on multiple psychotropic medications which were "ineffective." Patient was on Depakote "it was horrible medication for me", patient was on Risperdal, Abilify "but I was not feeling well on those medications", patient also was on Klonopin and Xanax "but I was feeling very foggy on that medications." Patient reported that she was prescribed levodopa/carbidopa for "side effects from the medications", patient never been diagnosed with Parkinson's disease. Patient has multiple allergies, please see above. Patient denied using any drugs, denies drinking alcohol, denied smoking cigarettes. Medical history: Hypertension, medication induced Parkinson's, COPD, scoliosis, history of surgeries for scoliosis, migraines, "high sodium level". As per nursing report overnight patient needed to be medicated with Ativan for agitation. Past psychiatric history: Patient never been admitted to the psychiatric inpatient unit never tried to commit suicide, patient was last seeing Dr. Sullivan about 2-4 years ago and was unsatisfied with his services. At present: Patient neurologist is prescribing psychotropic medications. Patient reports no hx of psychiatric admissions. Patient reports no hx of suicide attempts. Patient reports she wants to be d/c, as she plans to go to the [facility] on Friday morning with family until Friday. Patient denies hx familial hx of mental illness. Patient gave permission to talk to her . 09/03/18 17:10 09/03/18 17:10 Lab Results 09/03/18 17:10: Urine Opiates Screen Negative, Urine Methadone Screen Negative, Ur Barbiturates Screen Negative, Ur Phencyclidine Scrn Negative, Ur Amphetamines Screen Negative, U Benzodiazepines Scrn Negative, U Oth Cocaine Metabols Negative, U Cannabinoids Screen Negative 09/03/18 17:10: Alcohol, Quantitative < 10 09/03/18 17:10: Salicylates < 1 L, Acetaminophen < 10.0 L 09/03/18 17:10: Sodium 137, Potassium 3.8, Chloride 100, Carbon Dioxide 26, Anion Gap 15, BUN 18, Creatinine 0.7, Est GFR ( Amer) > 60, Est GFR (Non- Af Amer) > 60, Random Glucose 92, Calcium 9.0, Magnesium 2.0, Total Bilirubin 0.5, AST 28, ALT 19, Alkaline Phosphatase 112, Total Protein 7.2, Albumin 4.4, Globulin 2.7, Albumin/Globulin Ratio 1.6 09/03/18 17:10: Urine Color Straw, Urine Appearance Clear, Urine pH 6.0, Ur Specific [place] 1.010, Urine Protein Negative, Urine Glucose (UA) Negative, Urine Ketones Negative, Urine Blood Negative, Urine Nitrate Negative, Urine Bilirubin Negative, Urine Urobilinogen 0.2, Ur Leukocyte Esterase Trace H, Urine RBC TEST NOT PERFORMED, Urine WBC 2 - 5, Ur Epithelial Cells 6 - 8 H 09/03/18 17:10: WBC 8.2, RBC 4.58, Hgb 13.5, Hct 41.1, MCV 89.7, MCH 29.5, MCHC 32.8, RDW 12.7, Plt Count 197, MPV 12.4 H, Neut % (Auto) 64.5, Lymph % (Auto) 25.0, [place] % (Auto) 8.0 H, Eos % (Auto) 2.0, Baso % (Auto) 0.5, Lymph # (Auto) 2.0, [place] # (Auto) 0.7 H, Eos # (Auto) 0.2, Baso # (Auto) 0.04, Absolute Neuts (auto) 5.28 Vital Signs Temp Pulse Resp BP Pulse Ox 09/04/18 09:38 100 H 168/87 H 09/04/18 07:00 98.2 F 94 H 16 149/87 09/04/18 00:35 87 16 88/56 L 09/03/18 23:55 97 H 166/103 H 09/03/18 23:35 97 H 17 166/103 H 09/03/18 23:00 99 H 18 162/101 H 09/03/18 22:42 105 H 192/115 H 09/03/18 22:41 105 H 192/115 H 09/03/18 22:35 105 H 18 192/115 H 09/03/18 21:55 97.9 F 116 H 18 194/113 H 97 09/03/18 21:28 98.1 F 102 H 18 148/86 96 09/03/18 21:01 102 H 18 148/86 96 09/03/18 20:43 101 H 18 172/89 H 96 09/03/18 19:00 112 H 18 178/97 H 99 09/03/18 16:53 98.7 F 110 H 19 189/97 H 98 [facility] pharmacy was contacted: Sinemet 25/100 immediate release twice a day by Dr. Diego Lamictal 25 mg twice a day by Dr. Diego maxalt 10mg po as needed for migraine headaches. Patient reported that she would like Ativan at the nighttime, "I slept well" patient wants to continue on that medication. The patient failed the outpatient lower level of care: Yes Current Medications: Active Medications Generic Name Dose Route Start Last Admin Trade Name Freq PRN Reason Stop Dose Admin Acetaminophen 650 mg 09/04/18 04:08 09/04/18 05:05 Tylenol 325mg Tab PO 650 mg Q6H PRN Administration Pain, moderate (4-7) Al Hydrox/Mg Hydrox/Simethicone 30 ml 09/04/18 04:08 Maalox Plus 30 Ml PO DAILY PRN Indigestion / Heartburn Diphenhydramine HCl 25 mg 09/04/18 04:11 Benadryl PO Q6H PRN Side effects, allergy symptoms Haloperidol 2 mg 09/04/18 04:10 Haldol PO Q6H PRN Agitation Protocol Lorazepam 1 mg 09/03/18 22:07 09/03/18 22:21 Ativan PO 1 mg Q6H PRN Administration Agitation Protocol Lorazepam 0.5 mg 09/04/18 04:06 Ativan PO Q8H PRN Anxiety Protocol Losartan Potassium 50 mg 09/03/18 22:35 09/03/18 22:42 Cozaar PO 50 mg DAILY VARINDER Administration Magnesium Hydroxide 30 ml 09/04/18 04:08 Milk Of Magnesia PO DAILY PRN Constipation Verapamil HCl 180 mg 09/03/18 22:45 09/03/18 22:41 Calan Sr Tab PO 180 mg HS VARINDER Administration Zaleplon 5 mg 09/04/18 04:13 Sonata PO HS PRN Insomnia Present on Admission - Present on Admission Any Indicators Present on Admission: No History of DVT/PE: No History of Uncontrolled Diabetes: No Urinary Catheter: No Decubitus Ulcer Present: No Review of Systems - Review of Systems Systems not reviewed;Unavailable: Acuity of Condition - Constitutional Constitutional: As Per HPI - EENT Eyes: As Per HPI Ears: As Per HPI Nose/Mouth/Throat: As Per HPI - Breasts Breasts: As Per HPI - Cardiovascular Cardiovascular: As Per HPI - Respiratory Respiratory: As Per HPI - Gastrointestinal Gastrointestinal: As Per HPI - Genitourinary Genitourinary: As Per HPI - Reproductive: Female Reproductive:Female: As Per HPI - Menstruation Menstruation: As Per HPI - Musculoskeletal Musculoskeletal: As Per HPI - Integumentary Integumentary: As Per HPI - Neurological Neurological: As Per HPI - Psychiatric Psychiatric: As Per HPI - Endocrine Endocrine: As Per HPI - Hematologic/Lymphatic Hematologic: As Per HPI Past Patient History - Past Psychiatric History Previous Treatment History: None Prior Professional Help: See HPI Prior Psychiatric Treatment: see HPI At what hospital: see HPI Duration: see HPI Nature of Treatment: see HPI Explanation of prior treatment: see HPI - PSYCHIATRIC Hx Anxiety: Yes Hx Bipolar Disorder: Yes Hx Depression: Yes Hx Substance Use: No - Infectious Disease Hx of Infectious Diseases: None - Tetanus Immunizations Tetanus Immunization: Unknown - CARDIAC Hx Pacemaker: No - PULMONARY Hx Respiratory Disorders: Yes Hx Chronic Obstructive Pulmonary Disease (COPD): Yes - NEUROLOGICAL Hx Paralysis: No Hx Parkinson's Disease: Yes - HEENT Hx HEENT Problems: Yes Other/Comment: SINUSITIS - RENAL Hx Chronic Kidney Disease: No - ENDOCRINE/METABOLIC Hx Endocrine Disorders: No - HEMATOLOGICAL/ONCOLOGICAL Hx Blood Transfusions: Yes Hx Blood Transfusion Reaction: No - INTEGUMENTARY Hx Dermatological Problems: Yes Hx Psoriasis: Yes - MUSCULOSKELETAL/RHEUMATOLOGICAL Hx Musculoskeletal Disorders: Yes (SLIPPED DISC,SCOLIOSIS) Hx Osteoporosis: Yes - GASTROINTESTINAL Hx Gastrointestinal Disorders: Yes - GENITOURINARY/GYNECOLOGICAL Hx Genitourinary Disorders: No (C/S X2) - SURGICAL HISTORY Hx Surgeries: Yes Other/Comment: R/T SCOLIOSIS - ANESTHESIA Hx Anesthesia Reactions: No Hx Malignant Hyperthermia: No - Medical/Surgical History Reviewed & confirmed: by ok Meds Allergies/Adverse Reactions: Allergies Allergy/AdvReac Type Severity Reaction Status Date / Time cat dander Allergy ITCHING Verified 09/03/18 22:19 ciprofloxacin [From Cipro] Allergy RASH Verified 09/03/18 22:19 mold Allergy COUGH Verified 09/03/18 22:19 phenylalanine Allergy DIZZINESS Verified 09/03/18 22:19 Sulfa (Sulfonamide Allergy RASH Verified 09/03/18 22:19 Antibiotics) tetracycline Allergy URTICARIA Verified 09/03/18 22:19 artificial sweeteners Allergy RASH Uncoded 09/03/18 22:19 ASPERTAME Allergy DIARRHEA Uncoded 09/03/18 22:19 pku Allergy RASH Uncoded 09/03/18 22:19 steroids Allergy RASH Uncoded 09/03/18 22:19 Mental Status Examination - Personal Presentation Personal Presentation: Looks stated age - Affect Affect: Broad - Motor Activity Motor Activity: Calm - Reliability in Providing Information Reliability in Providing Information: Fair - Speech Speech: Other (overproductive) - Mood Mood: Other (Hypomanic) - Formal Thought Process Formal Thought Process: Hallucinations (?heard some noise over night), Circumstantial, Other (Overinclusive) - Hallucinations/Delusions Hallucinations: Auditory - Obsessions/Compulsions Obsessions: None Compulsions: None - Cognitive Functions Orientation: Person, Place, Situation, Time Sensorium: Alert Attention/Concentration: Easily distracted Estimate of Intelligence: Average Judgement: Intact, as evidence by: Insight regarding need for hospitalization - Risk Risk: Diminished functioning - Strength & Assets Inventory Strength & Assets Inventory: Intelligence, Family support, Education, Cooperative - Limitations Limitations: Other (Patient does not want to stay in the hospital to complete treatment) Psychiatric Physical Exam - Physical Exam Reviewed and confirmed: Emergency Department Physical Exam Results - Vital Signs Recent Vital Signs: Last Vital Signs Temp 98.2 F 09/04/18 07:00 Pulse 94 H 09/04/18 07:00 Resp 16 09/04/18 07:00 BP 149/87 09/04/18 07:00 Pulse Ox 97 09/03/18 21:55 - Labs Result Diagrams: 09/03/18 17:10 09/03/18 17:10 Labs: Laboratory Results - last 24 hr 09/03/18 09/03/18 09/03/18 17:10 17:10 17:10 WBC 8.2 RBC 4.58 Hgb 13.5 Hct 41.1 MCV 89.7 MCH 29.5 MCHC 32.8 RDW 12.7 Plt Count 197 MPV 12.4 H Neut % (Auto) 64.5 Lymph % (Auto) 25.0 [place] % (Auto) 8.0 H Eos % (Auto) 2.0 Baso % (Auto) 0.5 Lymph # (Auto) 2.0 [place] # (Auto) 0.7 H Eos # (Auto) 0.2 Baso # (Auto) 0.04 Absolute Neuts (auto) 5.28 Sodium 137 Potassium 3.8 Chloride 100 Carbon Dioxide 26 Anion Gap 15 BUN 18 Creatinine 0.7 Est GFR ( Amer) > 60 Est GFR (Non-Af Amer) > 60 Random Glucose 92 Calcium 9.0 Magnesium 2.0 Total Bilirubin 0.5 AST 28 ALT 19 Alkaline Phosphatase 112 Total Protein 7.2 Albumin 4.4 Globulin 2.7 Albumin/Globulin Ratio 1.6 Urine Color Straw Urine Appearance Clear Urine pH 6.0 Ur Specific [place] 1.010 Urine Protein Negative Urine Glucose (UA) Negative Urine Ketones Negative Urine Blood Negative Urine Nitrate Negative Urine Bilirubin Negative Urine Urobilinogen 0.2 Ur Leukocyte Esterase Trace H Urine RBC TEST NOT PERFORMED Urine WBC 2 - 5 Ur Epithelial Cells 6 - 8 H Salicylates Urine Opiates Screen Urine Methadone Screen Acetaminophen Ur Barbiturates Screen Ur Phencyclidine Scrn Ur Amphetamines Screen U Benzodiazepines Scrn U Oth Cocaine Metabols U Cannabinoids Screen Alcohol, Quantitative 09/03/18 09/03/18 09/03/18 17:10 17:10 17:10 WBC RBC Hgb Hct MCV MCH MCHC RDW Plt Count MPV Neut % (Auto) Lymph % (Auto) [place] % (Auto) Eos % (Auto) Baso % (Auto) Lymph # (Auto) [place] # (Auto) Eos # (Auto) Baso # (Auto) Absolute Neuts (auto) Sodium Potassium Chloride Carbon Dioxide Anion Gap BUN Creatinine Est GFR ( Amer) Est GFR (Non-Af Amer) Random Glucose Calcium Magnesium Total Bilirubin AST ALT Alkaline Phosphatase Total Protein Albumin Globulin Albumin/Globulin Ratio Urine Color Urine Appearance Urine pH Ur Specific [place] Urine Protein Urine Glucose (UA) Urine Ketones Urine Blood Urine Nitrate Urine Bilirubin Urine Urobilinogen Ur Leukocyte Esterase Urine RBC Urine WBC Ur Epithelial Cells Salicylates < 1 L Urine Opiates Screen Negative Urine Methadone Screen Negative Acetaminophen < 10.0 L Ur Barbiturates Screen Negative Ur Phencyclidine Scrn Negative Ur Amphetamines Screen Negative U Benzodiazepines Scrn Negative U Oth Cocaine Metabols Negative U Cannabinoids Screen Negative Alcohol, Quantitative < 10 - EKG Data EKG Interpreted by: ER Physician DSM Plan - DSM 5 DSM 5 Diagnosis: Bipolar type II Rule out cyclothymia Rule out medication induced psychosis - Recommended/Plan of Treatment Treatment Recommendations and Plan of Treatment: Milieu/structure/supportive therapy SW consultation for discharge plan and social issues Med management meds confirmed will decrease dose of lamictal to 25mg daily will start seroquel 25mg hs for psychosis/mood stabilization will start ativan 1mg po hs for restlessness and insomnia, mood stabilization will add ativan 0.5mg bid as needed for anxiety will call family for collaterals pt wanted to be d/c over the weekend, we will make decision if pt is in danger to self or to others the rest of meds will be continued because it would be not zepeda to change a lot of meds, moreover pt wants to be d/c [facility], this specifications writer cannot exclude that it will be tomorrow, and in this case it will be not safe to change a lot of meds Follow up on labs Will monitor closely Pt was educated about risk/benefits and alternatives of medications, coping strategies (safety plan, suicide prevention), relapse prevention, importance of follow up with psychiatrist and therapist, stay away from drugs/alcohol/smoking Projected ELOS: 5days Prognosis: fair Discharge Plan and Discharge Criteria: Patient will pose no imminent danger to self or others - Tobacco Cessation Tobacco Use Status for the last 30 days: Non User Tobacco Use Treatment Practical Counseling Provided: No Tobacco Use Treatment FDA-Approved Cessation Medication Provided: No - Alcohol or Substance Abuse Does the patient have an Alcohol or Substance Abuse Disorder: No Initial Psych Certification - Initial Certification I certify that the inpatient psychiatric facility admission was medically necessary for either: Treatment which could reasonbly be expected to improve pt's condition I estimate of hospitalization is necessary for proper treatment of the patient: 5 Unit of Time: Days My plans for post-hospital care for this patient are: f/u with psychiatrist
--- NOTE | 2018-09-04 15:05 | CON ---
DATE OF CONSULTATION: 09/04/2018 HISTORY OF PRESENT ILLNESS: A 68-year-old female was admitted to the psychiatric unit for her [place], bipolar disorder. She has a past medical history of hypertension, hyperlipidemia, migraine headaches, scoliosis of the spine. She has been under the care of a neurologist and had been taking Lamictal and carbidopa/levodopa and Maxalt, being prescribed, according to the patient, by the neurologist. MEDICATIONS: Her current active meds are at Ativan, Benadryl, verapamil, Cozaar, Haldol, Maalox, milk of magnesia, sonata, and Tylenol. SOCIAL HISTORY: She is a nonsmoker, nondrinker, and nondrug user. ALLERGIES: SHE HAS A HISTORY OF ALLERGIES TO CAT DANDER, TO CIPRO, TO MOLD, TO PHENYLALANINE, TO SULFA, TO TETRACYCLINE, ARTIFICIAL SWEETENERS, ASPARTAME, PKU, AND TO STEROIDS. REVIEW OF SYSTEMS: Ten systems are reviewed. Pertinent findings as stated. PHYSICAL EXAMINATION: VITAL SIGNS: Her blood pressure is 168/87. Her pulse is 94. Her respiratory rate is 16. Her temperature is 98.2. GENERAL: She is tearful, anxious, alert and oriented x3. LUNGS: Show diminished breath sounds at the bases. HEART: S1 and S2 rhythm. ABDOMEN: Soft with positive bowel sounds. EXTREMITIES: Show no evidence of edema. LABORATORY DATA: Shows a WBC of 8.2, RBC 4.58, hemoglobin 13.5, hematocrit 41.1, platelet count is 197. Chemistries show normal electrolytes. The BUN is 18, creatinine 0.7. LFTs are normal. Albumin is 4.4. Urinalysis is clear. Tox screen is negative. She had a chest x-ray, which is reported as being no active disease. An EKG was performed, which showed sinus tach. IMPRESSION: A 68-year-old female with a history of mood disorder, anxiety, hypertension. We will follow the patient's blood pressure, request consult with Nephrology who has been monitoring her blood pressure and adjusting her meds on the outside. I have also discussed her case with the psychiatrist, Dr. Forbes, and with the staff as well as with the patient. Thank you for allowing me to participate in the care of this patient. Tiffanie Mccarthy MD
--- NOTE | 2018-09-04 18:45 | CON ---
DATE OF CONSULTATION: 09/04/2018 REASON FOR CONSULTATION: Severe uncontrolled hypertension. HISTORY OF PRESENTING ILLNESS: A 68-year-old lady, seen in the psych [facility]. The patient was admitted yesterday because she reported that she was more depressed. At the time of admission, she was found to have a blood pressure of 189/97. The patient reports that recently her Lamictal was increased. Also, she was started on Boniva, and she thinks this may be playing a part in her uncontrolled hypertension. She gives a history of hypertension of at least 40 years. She denies any headache. She denies any chest pain. She denies any palpitations. The patient reports that at home she is on verapamil and Cozaar. PAST MEDICAL AND SURGICAL HISTORY: Depression, bipolar disorder, hypertension, hyperlipidemia, scoliosis of the spine. FAMILY HISTORY: Hypertension. SOCIAL HISTORY: No smoking, no alcohol use, no IV drug abuse. ALLERGIES: CIPRO, PHENYLALANINE, SULFA, TETRACYCLINE, STEROIDS, ASPARTAME. MEDICATIONS AT HOME: Ativan, Benadryl, verapamil, Cozaar, Haldol, Maalox, Sonata, Tylenol, Lamictal, Sinemet?. REVIEW OF SYSTEMS: The patient denies any suicidal ideation, she denies any chest pain. She denies any palpitations. All other systems are reviewed and are unremarkable. PHYSICAL EXAMINATION: GENERAL: Morbidly obese, elderly lady with severe scoliosis, is sitting in the chair. VITAL SIGNS: Blood pressure 168/87, heart rate 100, respiratory rate 16, temperature 98.2. HEENT: Normocephalic, atraumatic, positive pallor. NECK: Supple, no JVD. LUNGS: Bilateral equal entry, bilateral equal expansion. CARDIAC: S1 and S2, regular rate and rhythm, no murmur, no rub. ABDOMEN: Obese, distended, soft, nontender, bowel sounds present. EXTREMITIES: No lower extremity edema. LABORATORY DATA: WBC 8, hemoglobin 13.5, hematocrit 41, platelets 197. Sodium 137, potassium 3.8, chloride 100, CO2 of 26, BUN 18, creatinine 0.7, glucose 92, calcium 9, magnesium 2, AST 28, ALT 19, albumin 4.4. Urine, straw-colored, clear, pH 6, specific gravity 1010, protein negative, ketones negative. Urine toxicology, salicylate less than 1, Tylenol less than 10, alcohol less than 10. CURRENT MEDICATIONS: Ativan 1 mg every 6 hours p.r.n., Benadryl, verapamil 180 at bedtime, losartan 50, Haldol 2 mg, Seroquel, Sonata, Tylenol. The patient received 0.2 of clonidine yesterday. ASSESSMENT: 1. Severe uncontrolled hypertension. 2. Bipolar disorder. 3. Severe scoliosis 4. Hyperlipidemia. PLAN: 1. The patient has no proteinuria. 2. Increase losartan to 100 mg daily, 50 today. 3. Monitor blood pressure as per schedule. 4. Fine tuning of blood pressure can also be done in the outpatient setting. The patient has been provided with the card to follow up in the office. Negar Kothari MD
[2018-09-04] MEDS: Verapamil 180 mg ER Tab PO SCH (22:53)
[2018-09-05 08:30] LABS: GLUCOSE,FASTING 89 mg/dL (65-110); HDL CHOLESTEROL 54 mg/dL (29-60)
[2018-09-05 08:40] LABS: LDL CHOLESTEROL 68 mg/dL (0-129)
[2018-09-05 09:09] VITALS: BP 148/90; PULSE 85
--- NOTE | 2018-09-05 12:00 | PCM.PYCHDC ---
Mental Status Examination - Mental Status Examination Orientation: Person, Place, Situation Memory: Intact Mood: Neutral Affect: Broad Speech: Appropriate Attention: WNL Concentration: WNL Association: WNL Fund of Knowledge: WNL Formal Thought Process: No Impairment Description of patient's judgement and insight: improved and fair insight and judgment Psychotic Thoughts and Behaviors: Patient denied perceptual disturbance including hallucinations or paranoia. Delusions were not elicited on day of discharge. 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 Diego. In the emergency room patient presented in manic stage, required further evaluation and stabilization and medication management. Psychiatric History (includes Medical, Family, Personal Hx): see HPI Laboratory Data: Laboratory Tests 09/03/18 09/03/18 09/03/18 17:10 17:10 17:10 WBC 8.2 RBC 4.58 Hgb 13.5 Hct 41.1 MCV 89.7 MCH 29.5 MCHC 32.8 RDW 12.7 Plt Count 197 MPV 12.4 H Neut % (Auto) 64.5 Lymph % (Auto) 25.0 [place] % (Auto) 8.0 H Eos % (Auto) 2.0 Baso % (Auto) 0.5 Lymph # (Auto) 2.0 [place] # (Auto) 0.7 H Eos # (Auto) 0.2 Baso # (Auto) 0.04 Absolute Neuts (auto) 5.28 Sodium 137 Potassium 3.8 Chloride 100 Carbon Dioxide 26 Anion Gap 15 BUN 18 Creatinine 0.7 Est GFR ( Amer) > 60 Est GFR (Non-Af Amer) > 60 Random Glucose 92 Calcium 9.0 Magnesium 2.0 Total Bilirubin 0.5 AST 28 ALT 19 Alkaline Phosphatase 112 Total Protein 7.2 Albumin 4.4 Globulin 2.7 Albumin/Globulin Ratio 1.6 Urine Color Straw Urine Appearance Clear Urine pH 6.0 Ur Specific Jolon 1.010 Urine Protein Negative Urine Glucose (UA) Negative Urine Ketones Negative Urine Blood Negative Urine Nitrate Negative Urine Bilirubin Negative Urine Urobilinogen 0.2 Ur Leukocyte Esterase Trace H Urine RBC TEST NOT PERFORMED Urine WBC 2 - 5 Ur Epithelial Cells 6 - 8 H Salicylates Urine Opiates Screen Urine Methadone Screen Acetaminophen Ur Barbiturates Screen Ur Phencyclidine Scrn Ur Amphetamines Screen U Benzodiazepines Scrn U Oth Cocaine Metabols U Cannabinoids Screen Alcohol, Quantitative 09/03/18 09/03/18 09/03/18 17:10 17:10 17:10 WBC RBC Hgb Hct MCV MCH MCHC RDW Plt Count MPV Neut % (Auto) Lymph % (Auto) [place] % (Auto) Eos % (Auto) Baso % (Auto) Lymph # (Auto) [place] # (Auto) Eos # (Auto) Baso # (Auto) Absolute Neuts (auto) Sodium Potassium Chloride Carbon Dioxide Anion Gap BUN Creatinine Est GFR ( Amer) Est GFR (Non-Af Amer) Random Glucose Calcium Magnesium Total Bilirubin AST ALT Alkaline Phosphatase Total Protein Albumin Globulin Albumin/Globulin Ratio Urine Color Urine Appearance Urine pH Ur Specific Jolon Urine Protein Urine Glucose (UA) Urine Ketones Urine Blood Urine Nitrate Urine Bilirubin Urine Urobilinogen Ur Leukocyte Esterase Urine RBC Urine WBC Ur Epithelial Cells Salicylates < 1 L Urine Opiates Screen Negative Urine Methadone Screen Negative Acetaminophen < 10.0 L Ur Barbiturates Screen Negative Ur Phencyclidine Scrn Negative Ur Amphetamines Screen Negative U Benzodiazepines Scrn Negative U Oth Cocaine Metabols Negative U Cannabinoids Screen Negative Alcohol, Quantitative < 10 Consultations:: List each consultation separately and include: 1. Reason for request. 2. Findings. 3. Follow-up Consultations: DR. ARMIJO ON 09/04/18 Summary of Hospital Course include:: 1. Description of specific treatment plan utilized for patients during their course of treatmen. 2. Summarize the time- course for resolution of acute symptoms and/or regressed behaviors. 3. Describe issues identified and worked on during hospitalization. 4. Describe medication utilized. 5. Describe medical problems identified and treated. 6. Reassessment of suicide risk Summary of Hospital Course: Initial Psychiatric Evaluation 09/04/[address] QUINTEROS Chief Complaint (in patient's own words): "I said what I did not really mean, I knew that I am not myself, I am more irritable, everything gets into my nerves, Dr. Sullivan diagnosed me with cyclothymia, since Lamictal was started and increased 3 weeks ago and was getting progressively worse" Patient's Reaction to Hospitalization: Patient was admitted for observation and stabilization of hypomanic episode, possible suicidal ideation which patient denied. 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 Diego. In the emergency room patient presented in manic stage, required further evaluation and stabilization and medication management. Patient was seen and examined today at the treatment team meeting, patient presented with good personal hygiene, good ADLs, patient obviously in hypomanic stage, talkative, productive/pressured speech, difficulty to stay focus and concentrate, circumstantial and tangential thought process. Patient seems to be fair historian, patient reported since Lamictal ,which was prescribed for her for mood stabilization/depression by neurologist, was increased 3 weeks ago "I was getting progressively worse", pt acknowledged that she was feeling "edgy/irritable, emotional", patient reported "small things get into my nerves very easily", patient reported that she has frequent argument with her , patient also reported that her mind is racing, "I also started to buy a lottery tickets, it is not me, I am not a gambler" had difficulty to fall asleep and to stay asleep. Patient reports that few days ago heard some noise and she is not sure was of hallucinations or not. Usually manic episodes are about 1 week then patient would have 2 weeks off "even mood", after what patient would have depressive episode, last time patient was feeling depressed was 4 weeks ago. Patient reported being diagnosed with cyclothymia by Dr. Sullivan at the age of 51. Patient tried on multiple psychotropic medications which were "ineffective." Patient was on Depakote "it was horrible medication for me", patient was on Risperdal, Abilify "but I was not feeling well on those medications", patient also was on Klonopin and Xanax "but I was feeling very foggy on that medications." Patient reported that she was prescribed levodopa/carbidopa for "side effects from the medications", patient never been diagnosed with Parkinson's disease. Patient has multiple allergies, please see above. Patient denied using any drugs, denies drinking alcohol, denied smoking cigarettes. Medical history: Hypertension, medication induced Parkinson's, COPD, scoliosis, history of surgeries for scoliosis, migraines, "high sodium level". As per nursing report overnight patient needed to be medicated with Ativan for agitation. Past psychiatric history: Patient never been admitted to the psychiatric inpatient unit never tried to commit suicide, patient was last seeing Dr. Sullivan about 2-4 years ago and was unsatisfied with his services. At present: Patient neurologist is prescribing psychotropic medications. Patient reports no hx of psychiatric admissions. Patient reports no hx of suicide attempts. Patient reports she wants to be d/c, as she plans to go to the [facility] on Friday morning with family until Friday. Patient denies hx familial hx of mental illness. Patient gave permission to talk to her . Addendum 09/04/[address] QUINTEROS Risk/benefits/alternatives of Seroquel and Ativan discussed Collaterals were obtained from patient's by social media executive, see notes for more detailed information Will observe patient for 24 hours, patient's contracted for safety, most likely patient would required to be discharged tomorrow under her 's supervision. This script writer left prescriptions for: Ativan 0.5 mg twice a day as needed for restlessness and agitation #14 no refills Seroquel 25 mg at the nighttime for mood stabilization and possible psychotic symptoms #14 no refills Ativan 1 mg at the nighttime for insomnia and mood stabilization #14 no refills 09/04/[address] RATLIFF I interviewed patient at bedside to assess continued stability for discharge. Patient is alert and well-oriented to month, year and circumstances. Eye contact is good. Patient denies any suicidal thoughts or thoughts to harm others. Affect is pleasant, friendly and fairly related. Patient denies hallucinations and is not responding to internal stimuli. She denies paranoia. Thought process is clear though mildly tangential. She is easily redirected. Patient feels comfortable with discharge today and continues to express desire to be released today. She is tolerating medications and denies any major issues with them. Delusions and paranoia were not elicited on day of discharge. - Final Diagnosis (DSM 5) Condition upon Discharge: FAIR DSM 5: Bipolar type II Rule out cyclothymia Rule out medication induced psychosis Disposition: AGAINST MEDICAL ADVICE Follow-up Treatment Plan: PLEASE REFER TO SOCIAL WORK NOTE FOR FULL DISPOSITION INFORMATION PER DR. QUINTEROS 09/04/18 NOTE: This script writer left prescriptions for: Ativan 0.5 mg twice a day as needed for restlessness and agitation #14 no refills Seroquel 25 mg at the nighttime for mood stabilization and possible psychotic symptoms #14 no refills Ativan 1 mg at the nighttime for insomnia and mood stabilization #14 no refills Prescriptions/Medication Reconciliation: LORazepam [Ativan] 0.5 mg PO BID PRN #14 tab PRN Reason: Anxiety/restlessness LORazepam [Ativan] 1 mg PO HS #14 tab QUEtiapine [Seroquel] 25 mg PO HS #14 tab - Smoking Cessation Smoking Cessation Medication prescribed: No Reason for not providing: Patient denied using any drugs, drinking alcohol OR smoking cigarettes - Antipsychotic Medications Pt discharged on 2 or more routine antipsychotic medications: No
== END 2018-09-05 14:02 | disposition home or self-care (01) | DRG 885 ==
LOC: ED 16:20 → ERH 20:00 → UNDOADMIN 20:08 → ERH 20:08 → PSYC 21:40
PROVIDERS: ADMIT Psychiatry & Neurology Psychiatry; ATTEND Psychiatry & Neurology Psychiatry
DX: F31.81 Bipolar II disorder (principal); E78.5 Hyperlipidemia, unspecified; F41.9 Anxiety disorder, unspecified; G20 Parkinson's disease; I10 Essential (primary) hypertension; J44.9 Chronic obstructive pulmonary disease, unspecified; M41.9 Scoliosis, unspecified; M81.0 Age-related osteoporosis without current pathological fracture

== ENCOUNTER 2018-09-08 19:58 | Emergency (ER) | payer MEDICARE ==
[2018-09-08 20:09] VITALS: BMI 34.7
[2018-09-08 20:27] VITALS: TEMP 98.1
--- NOTE | 2018-09-08 21:28 | ED PDOC ---
Arrival/HPI - General Chief Complaint: Anxiety Time Seen by Provider: 09/08/18 20:29 Historian: Patient - History of Present Illness Narrative History of Present Illness (Text): 09/08/18 21:26 68-year-old female with a history of bipolar disorder, hypertension presents today for psychiatric evaluation. Per patient she was admitted to the psychiatric floor but had to leave 3 days ago due to a trip that she was unable to cancel. Patient at present time denies chest pain or shortness of breath. She is complaining of slight anxiety but states it is much better than it was prior to her psychiatric admission a few days ago. Patient denies headaches dizziness or weakness. No other complaints. She denies suicidal or homicidal ideation. Past Medical History - Provider Review Nursing Documentation Reviewed: Yes - Travel History Have you recently traveled outside [place] w/in the past 3 mons?: No - Infectious Disease Hx of Infectious Diseases: None - Tetanus Immunization Tetanus Immunization: Unknown - Cardiac Hx Cardiac Disorders: Yes Hx Hypertension: Yes - Pulmonary Hx Respiratory Disorders: Yes Hx Chronic Obstructive Pulmonary Disease (COPD): Yes - Neurological Hx Neurological Disorder: Yes Hx Parkinson's Disease: No Other/Comment: Patient reports medication she was once on caused EPS. - HEENT Hx HEENT Disorder: Yes Hx Sinusitis: Yes - Renal Hx Renal Disorder: No - Endocrine/Metabolic Hx Endocrine Disorders: No - Hematological/Oncological Hx Blood Disorders: Yes Hx Blood Transfusions: Yes Hx Blood Transfusion Reaction: No - Integumentary Hx Dermatological Disorder: Yes Hx Psoriasis: Yes - Musculoskeletal/Rheumatological Hx Musculoskeletal Disorders: Yes (SLIPPED DISC) Hx Osteoporosis: Yes Other/Comment: Uses cane to ambulate. - Gastrointestinal Hx Gastrointestinal Disorders: Yes Hx Constipation: Yes - Genitourinary/Gynecological Hx Genitourinary Disorders: No - Psychiatric Hx Psychophysiologic Disorder: Yes Hx Anxiety: Yes Hx Bipolar Disorder: Yes Hx Depression: Yes Hx Substance Use: No - Surgical History Hx Section: Yes (x 2) Hx Orthopedic Surgery: Yes (x 2 r/t scoliosis, spinal fusion.) Other/Comment: Hemorrhoid removal. Colonoscopy - Anesthesia Hx Anesthesia: Yes Hx Anesthesia Reactions: No Hx Malignant Hyperthermia: No - Suicidal Assessment Feels Threatened In Home Enviroment: No Family/Social History - Physician Review Nursing Documentation Reviewed: Yes Family/Social History: Unknown Family HX Smoking Status: Former Smoker Hx Alcohol Use: No Hx Substance Use: No Allergies/Home Meds Allergies/Adverse Reactions: Allergies cat dander Allergy (Verified 09/08/18 20:09) ITCHING ciprofloxacin [From Cipro] Allergy (Verified 09/08/18 20:09) RASH crow Allergy (Verified 09/08/18 21:21) CONGESTION metronidazole [From Flagyl] Allergy (Verified 09/08/18 21:21) DIARRHEA mold Allergy (Verified 09/08/18 20:09) COUGH phenylalanine Allergy (Verified 09/08/18 20:09) DIZZINESS SEIZURES pollen extracts Allergy (Verified 09/08/18 21:21) CONGESTION Sulfa (Sulfonamide Antibiotics) Allergy (Verified 09/08/18 20:09) RASH tetracycline Allergy (Verified 09/08/18 20:09) URTICARIA artificial sweeteners Allergy (Uncoded 09/08/18 20:09) RASH ASPERTAME Allergy (Uncoded 09/08/18 20:09) DIARRHEA pku Allergy (Uncoded 09/08/18 20:09) RASH steroids Allergy (Uncoded 09/08/18 20:09) RASH Home Medications: Home Meds Medication Instructions Recorded Confirmed Rizatriptan Benzoate [Maxalt] 10 mg PO PRN PRN 02/26/16 09/08/18 Losartan [Cozaar] 50 mg PO DAILY 04/02/18 09/08/18 Calcium Carbonate [Caltrate] 1 tab PO DAILY 09/03/18 09/08/18 Review of Systems - Review of Systems Constitutional: absent: Fatigue, Fevers Respiratory: absent: SOB, Cough Cardiovascular: absent: Chest Pain, Palpitations Gastrointestinal: absent: Abdominal Pain, Nausea, Vomiting Musculoskeletal: absent: Arthralgias, Back Pain, Neck Pain Skin: absent: Rash, Pruritis Neurological: absent: Headache, Dizziness Psychiatric: Anxiety, Depression. absent: Suicidal Ideation Physical Exam Vital Signs Reviewed: Yes Vital Signs Temp Pulse Resp BP Pulse Ox 09/08/18 20:15 98.1 F 108 H 19 141/91 H 98 Temperature: Afebrile Blood Pressure: Hypertensive Pulse: Tachycardic Respiratory Rate: Normal Appearance: Positive for: Well-Appearing, Non-Toxic, Comfortable Pain Distress: None Mental Status: Positive for: Alert and Oriented X 3 - Systems Exam Head: Present: Atraumatic Mouth: Present: Moist Mucous Membranes Neck: Present: Normal Range of Motion Respiratory/Chest: Present: Clear to Auscultation, Good Air Exchange. No: Respiratory Distress, Accessory Muscle Use Cardiovascular: Present: Regular Rate and Rhythm, Normal S1, S2. No: Murmurs Abdomen: No: Tenderness, Rebound, Guarding Back: Present: Normal Inspection Neurological: Present: GCS=15, Speech Normal Skin: Present: Warm, Dry, Normal Color. No: Rashes Psychiatric: Present: Alert, Oriented x 3 Medical Decision Making ED Course and Treatment: 09/08/18 21:28 Patient is nontoxic well-appearing in no distress vital signs are stable. CBC WNL CMP WNL Tylenol WNL Salicylate WNL Alcohol level WNL Urine drug screen wnl UA: + leukocytosis cxr: wnl ekg: NSR at 93b/m; no st elevations. normal axis. normal intervals. pt is medically cleared for PES evaluation Patient was seen and evaluated by PES screener: Sharon Patient was cleared psychiatrically for discharge Patient was advised to follow-up with a primary care physician and psychiatrist within the next 2 days. Patient was advised me to return if symptoms worsen persist or if new concerning symptoms develop pt wound prefer to try amoxicillin for UTI due to multiple medication allergies. Patient verbalizes understanding of discharge instructions and need for immediate followup. All aspects of this case were discussed the attending of record. Impression; cyclothymic disorder, UTI Follow up with the primary care physician within the next 2 days Amoxicillin twice daily x 3 days. follow up with the psychiatrist within the next 2 days Return immediately if symptoms worsen persist or if new concerning symptoms develop - RAD Interpretation Radiology Orders: 09/08/18 21:07 CHEST PORTABLE [RAD] Stat Disposition/Present on Arrival - Present on Arrival Any Indicators Present on Arrival: No History of DVT/PE: No History of Uncontrolled Diabetes: No Urinary Catheter: No History of Decub. Ulcer: No History Surgical Site Infection Following: None - Disposition Have Diagnosis and Disposition been Completed?: Yes Diagnosis: Cyclothymic disorder, Urinary tract infection Disposition: HOME/ ROUTINE Disposition Time: 23:23 Patient Plan: Discharge Patient Problems: Current Active Problems Problem Status Onset Cyclothymic disorder Acute Urinary tract infection Acute Condition: GOOD Discharge Instructions (ExitCare): Anxiety, Adult (DC), Urinary Tract Infections in Adults Additional Instructions: Follow up with the primary care physician within the next 2 days follow up with the psychiatrist within the next 2 days amoxicillin twice daily x 3 days. Return immediately if symptoms worsen persist or if new concerning symptoms develop Prescriptions: Amoxicillin 875 mg PO BID #6 tab Referrals: Tiffanie Mccarthy MD [Family Provider] - Follow up with primary [facility] [Outside] - Follow up with primary [facility] [Outside] - Follow up with primary [facility] [Outside] - Follow up with primary Forms: emere (Yi)
[2018-09-08 21:45] LABS: BASO # 0.04 K/mm3 (0.0-2.0); BASO % 0.6 % (0.0-3.0); EOS # 0.3 (0.0-0.7); EOS % 3.8 % (1.5-5.0); LYMPH # 2.2 (1.2-3.4); LYMPH % 32.5 % (22.0-35.0); MEAN CELL VOLUME 90.2 fl (80.0-105.0); MEAN CORPUSCULAR HEMOGLOBIN 29.5 pg (25.0-35.0); MEAN CORPUSCULAR HGB CONC 32.7 g/dl (31.0-37.0); MEAN PLATELET VOLUME 11.5 fl (7.0-11.0); MONO # 0.8 (0.1-0.6); MONO % 11.3 % (1.0-6.0); RBC 4.4 10^6/uL (3.5-6.1); RED CELL DISTRIBUTION WIDTH 12.8 % (11.5-14.5); URINE BILIRUBIN NEGATIVE (NEGATIVE); URINE BLOOD NEGATIVE (NEGATIVE); URINE GLUCOSE (UA) NEGATIVE (NEGATIVE); URINE LEUKOCYTE ESTERASE SMALL Leu/uL (NEGATIVE); URINE PROTEIN NEGATIVE mg/dL (<30 mg/dL); URINE UROBILINOGEN 0.2 E.U./dL (<1 E.U./dL); WHITE BLOOD COUNT 6.9 10^3/uL (4.5-11.0)
[2018-09-08 21:46] LABS: URINE APPEARANCE CLEAR (CLEAR); URINE COLOR YELLOW (YELLOW)
[2018-09-08 21:54] LABS: ACETAMINOPHEN < 10.0 ug/ml (10.0-20.0); SALICYLATE < 1 mg/dL (2.0-20.0)
[2018-09-08 21:58] LABS: URINE BACTERIA FEW /hpf; URINE EPITHELIAL CELLS 0 - 2 /hpf (0-5)
[2018-09-08 22:07] LABS: ALB/GLOB RATIO 1.6 (1.1-1.8); ALBUMIN 4.2 g/dL (3.0-4.8); ALT/SGPT 14 U/L (7-56); AST/SGOT 24 U/L (14-36); BLOOD UREA NITROGEN 22 mg/dL (7-21); CALCIUM 9.1 mg/dL (8.4-10.5); GFR NON-AFRICAN AMERICAN > 60
[2018-09-08 22:24] LABS: BARBITURATES, UR NEGATIVE (NEGATIVE); BENZODIAZEPINES, UR NEGATIVE (NEGATIVE); OPIATES, UR NEGATIVE (NEGATIVE); PHENCYCLIDINE, UR NEGATIVE (NEGATIVE)
[2018-09-08 23:31] VITALS: BP 131/92; PULSE 91; RESP 16; O2SAT 98
--- NOTE | 2018-09-09 09:36 | RAD ---
Date of service: 09/08/2018 HISTORY: pes eval COMPARISON: 09/03/2018 TECHNIQUE: 1 view obtained. FINDINGS: LUNGS: No active pulmonary disease. PLEURA: No significant pleural effusion identified, no pneumothorax apparent. CARDIOVASCULAR: No aortic atherosclerotic calcification present. Normal cardiac size. No pulmonary vascular congestion. OSSEOUS STRUCTURES: Severe scoliosis convex to the right VISUALIZED UPPER ABDOMEN: Normal. OTHER FINDINGS: None. IMPRESSION: No active disease.
--- NOTE | 2018-09-09 15:49 | CARD ---
APPROVED REPORT Date of service: 09/08/2018 EKG Measurement Heart [id number] <Conclusion> Normal sinus rhythm Normal ECG
--- NOTE | 2018-09-10 09:13 | CP.PCM.PCO ---
Addendum Addendum: 09/10/18 09:10 pt contacted this lead technical writer, saying that she is doing "much better" on the meds she was d/c on pt asked this lead technical writer to give scripts till she will be seen by this lead technical writer faxed over the scripts for seroquel 25mg hs #7 with 3RF ativan 1mg hs #7 with 3RF ativan 0.5mg po bid #14 with 3RF to [facility] pharmacy pt has appt with on 10/12/18 at [facility] pt reported that she will bring self back to the hospital if feels worse.
== END 2018-09-08 23:52 | disposition home or self-care (01) ==
LOC: ED 19:58
DX: F34.0 Cyclothymic disorder (principal); N39.0 Urinary tract infection, site not specified; I10 Essential (primary) hypertension; J44.9 Chronic obstructive pulmonary disease, unspecified; F41.9 Anxiety disorder, unspecified; F31.9 Bipolar disorder, unspecified; Z87.891 Personal history of nicotine dependence
CPT/HCPCS: 71045; 80053; 81001; 85025; 87086; 90791; 93005; 99283; G0480